=== PATIENT | male | born 1945 | race Caucasian/White ===

== ENCOUNTER 2017-12-18 21:26 | Emergency (ER) | payer MEDICARE ==
[~2017-12-18 21:26] MED LIST: ALBU6.7H IH; ALLO300T2 PO; ASPI-12 PO; BUME2TAB18 PO; LEVO175T9 PO; METO25TA6 PO; NITR0.4T50 SL; OLAN5TAB27 PO; POTA10TA PO; PRED10TA23 PO; TRAZ-187 PO
[2017-12-18 23:02] LABS: BASOPHILS % (AUTO) 0.7 % (0.0-5.0); EOSINOPHILS % (AUTO) 10.5 % (0.0-8.0); HEMATOCRIT 37.3 % (42-54); LYMPHOCYTES % (AUTO) 15.2 % (21.0-51.0); MEAN CORPUSCULAR HEMOGLOBIN 32.7 pg (27.0-33.0); MEAN CORPUSCULAR HGB CONC 35.9 g/dL (32.0-36.0); MEAN CORPUSCULAR VOLUME 91.3 fL (79-99); MONOCYTES % (AUTO) 9.6 % (3.0-13.0); PLATELET COUNT (AUTO) 209 K/uL (130-400); RED BLOOD CELL COUNT(AUTO) 4.08 MIL/uL (4.50-6.20); RED CELL DISTRIBUTION WIDTH 14.5 % (11.0-15.5); WHITE BLOOD COUNT (AUTO) 9.9 K/uL (4.8-10.8)
[2017-12-18 23:16] LABS: CREATININE 1.4 mg/dL (0.5-1.5); POTASSIUM 3.9 mmol/L (3.5-5.1)
== END 2017-12-19 01:36 | disposition home or self-care (01) ==
LOC: EDH 21:26
DX: M54.5 Low back pain (principal); R51 Headache; R42 Dizziness and giddiness; G89.29 Other chronic pain; I10 Essential (primary) hypertension; E11.9 Type 2 diabetes mellitus without complications; E07.9 Disorder of thyroid, unspecified; Z88.8 Allergy status to other drugs, medicaments and biological substances; W18.39XA Other fall on same level, initial encounter; Y93.89 Activity, other specified; Y92.89 Other specified places as the place of occurrence of the external cause; Y99.8 Other external cause status
CPT/HCPCS: 36415; 70450; 72100; 72125; 73522; 80048; 85025; 93005

== ENCOUNTER 2018-12-02 14:05 | Emergency (ER) | payer MEDICARE, OTHER ==
[~2018-12-02 14:05] MED LIST changes: +ACET325C5 PO; +AEC81 PO; -ALBU6.7H IH; +APIX2.5T PO; -ASPI-12 PO; +BISA5TAB12 PO; +LUBI24CA2 PO; +MEMA5TAB7 PO; +METF-444 PO; +METO25 PO; -METO25TA6 PO; -NITR0.4T50 SL; -OLAN5TAB27 PO; +PALI117D IM; -POTA10TA PO; -PRED10TA23 PO; -TRAZ-187 PO
[2018-12-02 15:53] LABS: BASOPHILS % (AUTO) 0.8 % (0.0-5.0); EOSINOPHILS % (AUTO) 5.2 % (0.0-8.0); HEMATOCRIT 37.4 % (42-54); LYMPHOCYTES % (AUTO) 12.5 % (21.0-51.0); MEAN CORPUSCULAR HGB CONC 34.1 g/dL (32.0-36.0); MEAN CORPUSCULAR VOLUME 90.8 fL (79-99); MONOCYTES % (AUTO) 7.5 % (3.0-13.0); NUCLEATED RED BLOOD CELLS 0.1 % (0.0-0.19); PLATELET COUNT (AUTO) 257 K/uL (130-400); RED BLOOD CELL COUNT(AUTO) 4.12 MIL/uL (4.50-6.20); RED CELL DISTRIBUTION WIDTH 15.9 % (11.0-15.5); WHITE BLOOD COUNT (AUTO) 8.6 K/uL (4.8-10.8)
[2018-12-02 16:13] LABS: CREATININE 1.2 mg/dL (0.5-1.5); POTASSIUM 4.5 mmol/L (3.5-5.1)
[2018-12-02 16:18] LABS: BILIRUBIN,TOTAL 0.7 mg/dL (0.2-1.0); TOTAL PROTEIN, SERUM 8.5 g/dL (6.0-8.3)
[2018-12-02] MEDS ORDERED: ACETAMINOPHEN 325 MG TAB ONE (17:46)
== END 2018-12-02 21:59 | disposition home or self-care (01) ==
LOC: EDH 14:05
DX: S09.90XA Unspecified injury of head, initial encounter (principal); F31.9 Bipolar disorder, unspecified; I11.0 Hypertensive heart disease with heart failure; I50.9 Heart failure, unspecified; E11.9 Type 2 diabetes mellitus without complications; E07.9 Disorder of thyroid, unspecified; Z90.49 Acquired absence of other specified parts of digestive tract; Z91.040 Latex allergy status; W18.39XA Other fall on same level, initial encounter; Y93.89 Activity, other specified; Y92.89 Other specified places as the place of occurrence of the external cause; Y99.8 Other external cause status
CPT/HCPCS: 36415; 70450; 80053; 84484; 85025; 93005

== ENCOUNTER 2019-01-01 20:31 | Emergency (ER) | payer MEDICARE ==
[2019-01-01 21:27] LABS: BASOPHILS % (AUTO) 0.6 % (0.0-5.0); EOSINOPHILS % (AUTO) 5.4 % (0.0-8.0); HEMATOCRIT 35.1 % (42-54); MEAN CORPUSCULAR HEMOGLOBIN 31.6 pg (27.0-33.0); MEAN CORPUSCULAR HGB CONC 34.6 g/dL (32.0-36.0); MEAN CORPUSCULAR VOLUME 91.4 fL (79-99); MONOCYTES % (AUTO) 13.6 % (3.0-13.0); NEUTROPHILS % (AUTO) 65.4 % (40.0-77.0); NUCLEATED RED BLOOD CELLS 0.1 % (0.0-0.19); PLATELET COUNT (AUTO) 195 K/uL (130-400); RED BLOOD CELL COUNT(AUTO) 3.84 MIL/uL (4.50-6.20); RED CELL DISTRIBUTION WIDTH 15.2 % (11.0-15.5); WHITE BLOOD COUNT (AUTO) 7.2 K/uL (4.8-10.8)
[2019-01-01 21:35] LABS: CREATININE 1.1 mg/dL (0.5-1.5); POTASSIUM 3.9 mmol/L (3.5-5.1)
[2019-01-01 21:36] LABS: PARTIAL THROMBOPLASTIN TIME 24.6 SEC (26.3-35.5); PROTHROMBIN TIME 10.5 SEC (9.6-11.6)
[2019-01-01 21:38] LABS: APPEARANCE,URINE Clear (CLEAR); BILIRUBIN,URINE Negative (NEGATIVE); COLOR,URINE Yellow (YELLOW); GLUCOSE, URINE (UA) Negative (NEGATIVE); KETONES,URINE Negative (NEGATIVE); LEUKOCYTE ESTERASE ,URINE Negative (NEGATIVE); NITRATE,URINE Negative (NEGATIVE); OCCULT BLOOD,URINE Negative (NEGATIVE); PROTEIN,URINE Negative (NEGATIVE)
[2019-01-01 21:39] LABS: ALBUMIN 3.3 g/dL (3.5-5.0); BILIRUBIN,TOTAL 0.6 mg/dL (0.2-1.0); TOTAL PROTEIN, SERUM 7.7 g/dL (6.0-8.3)
== END 2019-01-02 01:10 | disposition home or self-care (01) ==
LOC: EDH 20:31
DX: M25.552 Pain in left hip (principal); M54.2 Cervicalgia; R51 Headache; F02.80 Dementia in other diseases classified elsewhere, unspecified severity, without behavioral disturbance, psychotic disturbance, mood disturbance, and anxiety; F31.9 Bipolar disorder, unspecified; E11.9 Type 2 diabetes mellitus without complications; I10 Essential (primary) hypertension; E07.9 Disorder of thyroid, unspecified; Z90.49 Acquired absence of other specified parts of digestive tract; Z87.891 Personal history of nicotine dependence; W18.39XA Other fall on same level, initial encounter; Y93.01 Activity, walking, marching and hiking; Y92.89 Other specified places as the place of occurrence of the external cause; Y99.8 Other external cause status
CPT/HCPCS: 36415; 70450; 71045; 72125; 73502; 80053; 81003; 82550; 84484; 85025; 85610; 85730; 93005

== ENCOUNTER 2022-07-13 22:23 | Inpatient (IN) | payer OTHER, MEDICARE ==
[~2022-07-13] VITALS: Ht 182.9 cm; Wt 102.1 kg
[~2022-07-13 22:23] MED LIST changes: -ACET325C5 PO; +ACET325C6 PO; +BISA-151 PO; -BISA5TAB12 PO; -BUME2TAB18 PO; +BUME2TAB5 PO
[2022-07-13] MEDS ORDERED: ACETAMINOPHEN 325 MG SUPPOSITORY RC ONE (22:51)
[2022-07-13] MEDS ORDERED: ACETAMINOPHEN 650 MG SUPPOSITORY RC ONE (23:00)
[2022-07-13 23:01] LABS: BASOPHILS % (AUTO) 0.3 % (0.0-5.0); EOSINOPHILS % (AUTO) 0.5 % (0.0-8.0); HEMATOCRIT 41.1 % (42-54); LYMPHOCYTES % (AUTO) 2.5 % (21.0-51.0); MEAN CORPUSCULAR HEMOGLOBIN 30.2 pg (27.0-33.0); MEAN CORPUSCULAR HGB CONC 33.6 g/dL (32.0-36.0); MEAN CORPUSCULAR VOLUME 89.9 fL (79-99); MONOCYTES % (AUTO) 5.6 % (3.0-13.0); NEUTROPHILS % (AUTO) 90.6 % (40.0-77.0); PLATELET COUNT (AUTO) 217 K/uL (130-400); RED BLOOD CELL COUNT(AUTO) 4.57 MIL/uL (4.50-6.20); RED CELL DISTRIBUTION WIDTH 15.5 % (11.0-15.5); WHITE BLOOD COUNT (AUTO) 18.3 K/uL (4.8-10.8)
[2022-07-13 23:14] LABS: INR 1.08 (0.85-1.15); PROTHROMBIN TIME 11.7 SEC (9.6-11.6)
[2022-07-13 23:15] LABS: CREATININE 1.2 mg/dL (0.5-1.5); PARTIAL THROMBOPLASTIN TIME 21.4 SEC (26.3-35.5); POTASSIUM 4.2 mmol/L (3.5-5.1)
[2022-07-13 23:19] LABS: ABG BASE EXCESS -2.7 mmol/L (-2.0-3.0); ABG HCO3 20.3 mmol/L (21.0-28.0); ABG OXYGEN SATURATION 88.2 % (95.0-99.0); ABG PCO2 30 mmHg (35-48)
[2022-07-13 23:19] LABS: ALBUMIN 3.3 g/dL (3.5-5.0); MAGNESIUM 1.7 mg/dL (1.80-2.40); TOTAL PROTEIN, SERUM 9.6 g/dL (6.0-8.3)
[2022-07-13 23:26] LABS: APPEARANCE,URINE CLEAR (CLEAR); BILIRUBIN,URINE NEGATIVE (NEGATIVE); COLOR,URINE LIGHT-YELLOW (YELLOW); GLUCOSE, URINE (UA) NEGATIVE (NEGATIVE); KETONES,URINE NEGATIVE (NEGATIVE); LEUKOCYTE ESTERASE ,URINE NEGATIVE Leu/uL (NEGATIVE); NITRATE,URINE NEGATIVE (NEGATIVE); PROTEIN,URINE 10 mg/dL (NEGATIVE); UROBILINOGEN,URINE 0.2 mg/dL (0.2-1.0)
[2022-07-13 23:28] LABS: B-TYPE NATRIURETIC PEPTIDE 112 pg/mL (0-100)
[2022-07-13 23:48] LABS: MUCUS,URINE RARE LPF (None Seen); RBC,URINE 0-1 /HPF (0-1)
[2022-07-14] MEDS ORDERED: ZOSYN 3.375GM +NS 50ML IV ONE
[2022-07-14] MEDS ORDERED: 0.9%NACL 1000ML 2,000 ML IV ONE (00:48)
[2022-07-14] MEDS ORDERED: IPRATROPIUM/ALBUTEROL SULFATE 3 ML SOLUTION IH PRN (01:00)
[2022-07-14] MEDS: ZOSYN 3.375GM +NS 50ML IV SCH ×3 (01:00→17:30)
[2022-07-14] MEDS ORDERED: 0.9%NACL 1000ML 2,190 ML IV ONE (01:00)
[2022-07-14] MEDS: LEVOFLOXACIN 500 MG/D5W 100 ML 100 ML IV SCH (01:47)
[2022-07-14] MEDS: INSULIN HUMULIN R 100 UNIT/ML 3ML SQ SCH ×5 (07:30→20:35)
[2022-07-14 08:43] LABS: ALBUMIN 2.7 g/dL (3.5-5.0); CREATININE 1.2 mg/dL (0.5-1.5); MAGNESIUM 1.7 mg/dL (1.80-2.40); PHOSPHORUS 2.9 mg/dL (2.5-4.9); POTASSIUM 4.5 mmol/L (3.5-5.1); TOTAL PROTEIN, SERUM 7.9 g/dL (6.0-8.3)
[2022-07-14] MEDS ORDERED: POTASSIUM CHLORIDE 20MEQ/100ML 100 ML IV PRN ×2 (09:00)
[2022-07-14] MEDS ORDERED: ONDANSETRON 4MG INJ IVP PRN (09:00)
[2022-07-14] MEDS ORDERED: 0.9% NACL 250ML IV SCH (09:00)
[2022-07-14] MEDS ORDERED: VANCOMYCIN PROTOCOL PER PHARMACY IV SCH (09:00)
[2022-07-14] MEDS ORDERED: DEXTROSE 50%-WATER 50 ML DISP.SYRIN IV PRN (09:00)
[2022-07-14] MEDS ORDERED: GLUCAGON 1MG KIT 1 MG ML IM PRN (09:00)
[2022-07-14] MEDS ORDERED: VANCOMYCIN 1G VIAL IVPB SCH (09:00)
[2022-07-14] MEDS ORDERED: LIDOCAINE HCL-MPF 1% 2ML VIAL IV PRN ×2 (09:00)
[2022-07-14 09:03] LABS: BASOPHILS % (AUTO) 0.2 % (0.0-5.0); EOSINOPHILS % (AUTO) 0.3 % (0.0-8.0); HEMATOCRIT 33.6 % (42-54); MEAN CORPUSCULAR HEMOGLOBIN 30.2 pg (27.0-33.0); MEAN CORPUSCULAR HGB CONC 33.6 g/dL (32.0-36.0); MEAN CORPUSCULAR VOLUME 89.8 fL (79-99); MONOCYTES % (AUTO) 8.1 % (3.0-13.0); NEUTROPHILS % (AUTO) 86.8 % (40.0-77.0); PLATELET COUNT (AUTO) 147 K/uL (130-400); RED BLOOD CELL COUNT(AUTO) 3.74 MIL/uL (4.50-6.20); RED CELL DISTRIBUTION WIDTH 15.5 % (11.0-15.5); WHITE BLOOD COUNT (AUTO) 17.6 K/uL (4.8-10.8)
[2022-07-14] MEDS: ENOXAPARIN SODIUM 30 MG/0.3 ML SQ SCH (10:11)
[2022-07-14] MEDS ORDERED: COMPOUND IV REFRIGERATED 1 EACH IVSOLN MISC PRN (11:00)
[2022-07-14] MEDS: IPRATROPIUM/ALBUTEROL SULFATE 3 ML SOLUTION IH SCH ×3 (11:38→23:27)
[2022-07-14] MEDS: VANCOMYCIN 1.25 GM/250 ML BAG 250 ML IV SCH ×2 (11:57→21:41)
[2022-07-14] MEDS: MAGNESIUM 2GM PREMIX 50ML 50 ML IV PRN (14:15)
[2022-07-14 19:00] VITALS: BP 117/59
[2022-07-14] MEDS ORDERED: SODIUM CHLORIDE 3% FOR INHALATION 4 ML/AMP VIAL.NEB IH ONE (23:37)
[2022-07-15] VITALS (7 sets, daily range): BP systolic 114–132; BP diastolic 60–90
[2022-07-15] MEDS: LEVOFLOXACIN 500 MG/D5W 100 ML 100 ML IV SCH (00:07)
[2022-07-15] MEDS: ZOSYN 3.375GM +NS 50ML IV SCH ×3 (01:17→18:12)
[2022-07-15] MEDS ORDERED: GUAIFENESIN-DM 200/20 MG 10 ML PO PRN (01:30)
[2022-07-15 05:23] LABS: HEMATOCRIT 32.8 % (42-54); MEAN CORPUSCULAR HEMOGLOBIN 30.4 pg (27.0-33.0); MEAN CORPUSCULAR HGB CONC 34.1 g/dL (32.0-36.0); MEAN CORPUSCULAR VOLUME 88.9 fL (79-99); RED BLOOD CELL COUNT(AUTO) 3.69 MIL/uL (4.50-6.20); RED CELL DISTRIBUTION WIDTH 15.1 % (11.0-15.5); WHITE BLOOD COUNT (AUTO) 10.8 K/uL (4.8-10.8)
[2022-07-15] MEDS: INSULIN HUMULIN R 100 UNIT/ML 3ML SQ SCH ×7 (05:33→22:43)
[2022-07-15 05:38] LABS: POTASSIUM 3.8 mmol/L (3.5-5.1)
[2022-07-15 05:46] LABS: HEMOGLOBIN A1C 6.1 % (4.0-6.0)
[2022-07-15] MEDS ORDERED: IPRATROPIUM/ALBUTEROL SULFATE 3 ML SOLUTION IH SCH (06:00)
[2022-07-15] MEDS: IPRATROPIUM/ALBUTEROL SULFATE 3 ML SOLUTION IH SCH ×4 (07:00→23:12)
[2022-07-15] MEDS: ENOXAPARIN SODIUM 30 MG/0.3 ML SQ SCH (09:07)
[2022-07-15] MEDS: VANCOMYCIN 1.25 GM/250 ML BAG 250 ML IV SCH ×2 (09:59→22:32)
[2022-07-15] MEDS ORDERED: HUM100IN SQ (17:34)
[2022-07-15] MEDS ORDERED: METO25TA6 PO (17:34)
[2022-07-15] MEDS ORDERED: LACT10SO9 PO (17:34)
[2022-07-15] MEDS ORDERED: INSU200I SQ (17:34)
[2022-07-15] MEDS ORDERED: LEVO200C2 PO (17:34)
[2022-07-15] MEDS ORDERED: MEMA5TAB PO (17:34)
[2022-07-15] MEDS ORDERED: METF-444 PO (17:34)
[2022-07-15] MEDS ORDERED: ASPI-1005 PO (17:34)
[2022-07-15] MEDS ORDERED: ALLO300T2 PO (17:34)
[2022-07-15] MEDS ORDERED: SERT-438 PO (17:34)
[2022-07-15] MEDS ORDERED: BENZ0.5T43 PO (17:34)
[2022-07-15] MEDS ORDERED: DEXT1DRO OP (17:34)
[2022-07-15] MEDS ORDERED: ACET325T51 PO (17:34)
[2022-07-15] MEDS ORDERED: MULT15TA3 PO (17:34)
[2022-07-15] MEDS ORDERED: DOCU100C33 PO (17:34)
[2022-07-15] MEDS ORDERED: BUME2TAB5 PO (17:34)
[2022-07-15] MEDS ORDERED: LINA145C PO (17:34)
[2022-07-15] MEDS ORDERED: PALI39DI IM (17:34)
[2022-07-15] MEDS ORDERED: ACETAMINOPHEN 325 MG TAB PO PRN (18:00)
[2022-07-15] MEDS ORDERED: METOPROLOL TARTRATE 25 MG TAB ONE (18:22)
[2022-07-15] MEDS: METOPROLOL TARTRATE 25 MG TAB PO SCH ×2 (18:28→22:23)
[2022-07-15] MEDS ORDERED: [UNRECOGNIZED DRUG - OTHER] SQ SCH (21:00)
[2022-07-15] MEDS ORDERED: HUM INSULIN NPH SQ SCH (21:00)
[2022-07-15] MEDS ORDERED: INSULIN LISPRO 10 UNIT SQ SCH (21:00)
[2022-07-15] MEDS ORDERED: REG INSULIN SQ SCH (21:00)
[2022-07-15] MEDS: METFORMIN HCL 500 MG TABLET PO SCH (22:23)
[2022-07-15] MEDS: MEMANTINE HCL 5 MG TABLET PO SCH (22:23)
[2022-07-15] MEDS: DOCUSATE SODIUM 100 MG CAP PO SCH (22:24)
[2022-07-15] MEDS: ASPIRIN 81MG CHEW TAB PO SCH (22:24)
[2022-07-15] MEDS: LACTULOSE 20 GM/30 ML UDCUP PO SCH (22:24)
[2022-07-15] MEDS: BENZTROPINE 0.5MG TAB PO SCH (22:36)
[2022-07-15] MEDS: INSULIN LISPRO 100 UNIT/ML 3ML SQ SCH (22:40)
[2022-07-16] MEDS: ZOSYN 3.375GM +NS 50ML IV SCH ×3 (01:52→17:01)
[2022-07-16 04:00] VITALS: BP 110/56
[2022-07-16 05:34] LABS: BASOPHILS % (AUTO) 0.6 % (0.0-5.0); EOSINOPHILS % (AUTO) 5.6 % (0.0-8.0); HEMATOCRIT 32.4 % (42-54); LYMPHOCYTES % (AUTO) 8.7 % (21.0-51.0); MEAN CORPUSCULAR HEMOGLOBIN 29.9 pg (27.0-33.0); MEAN CORPUSCULAR HGB CONC 33.6 g/dL (32.0-36.0); MONOCYTES % (AUTO) 10.3 % (3.0-13.0); NEUTROPHILS % (AUTO) 73.8 % (40.0-77.0); PLATELET COUNT (AUTO) 188 K/uL (130-400); RED BLOOD CELL COUNT(AUTO) 3.64 MIL/uL (4.50-6.20); RED CELL DISTRIBUTION WIDTH 15.4 % (11.0-15.5); WHITE BLOOD COUNT (AUTO) 10.4 K/uL (4.8-10.8)
[2022-07-16 05:41] LABS: CREATININE 1.2 mg/dL (0.5-1.5)
[2022-07-16] MEDS: INSULIN HUMULIN R 100 UNIT/ML 3ML SQ SCH ×4 (06:01→21:00)
[2022-07-16] MEDS: LEVOTHYROXINE 100 MCG TABLET PO SCH (06:11)
[2022-07-16] MEDS: INSULIN HUMULIN 70/30 100 UNIT/ML 3ML SQ SCH ×2 (06:13→16:54)
[2022-07-16] MEDS: IPRATROPIUM/ALBUTEROL SULFATE 3 ML SOLUTION IH SCH ×3 (06:41→18:51)
[2022-07-16 07:49] VITALS: BP 112/50
[2022-07-16] MEDS: METFORMIN HCL 500 MG TABLET PO SCH ×2 (08:54→21:08)
[2022-07-16] MEDS: ALLOPURINOL 300 MG TABLET PO SCH (08:54)
[2022-07-16] MEDS: MEMANTINE HCL 5 MG TABLET PO SCH ×2 (08:55→21:10)
[2022-07-16] MEDS: LACTULOSE 20 GM/30 ML UDCUP PO SCH ×2 (08:56→21:10)
[2022-07-16] MEDS: BENZTROPINE 0.5MG TAB PO SCH ×2 (08:56→21:10)
[2022-07-16] MEDS: DOCUSATE SODIUM 100 MG CAP PO SCH ×2 (09:00→21:08)
[2022-07-16] MEDS ORDERED: NON-FORMULARY MEDICATION 1 EACH (Levothyroxine Sodium (Levothyroxine) 200 MCG) PO SCH (09:00)
[2022-07-16] MEDS ORDERED: BUMETANIDE 2 MG PO SCH (09:00)
[2022-07-16] MEDS: MULTIVITAMINS/MINERALS/IRO TAB PO SCH (09:00)
[2022-07-16] MEDS ORDERED: Linaclotide (Linzess) 145 MCG PO SCH (09:00)
[2022-07-16] MEDS: BUMETANIDE 1 MG TAB PO SCH (09:01)
[2022-07-16] MEDS: VANCOMYCIN 1.25 GM/250 ML BAG 250 ML IV SCH ×2 (09:12→18:38)
[2022-07-16] MEDS: ENOXAPARIN SODIUM 30 MG/0.3 ML SQ SCH (09:23)
[2022-07-16] MEDS: INSULIN LISPRO 100 UNIT/ML 3ML SQ SCH ×2 (10:04→21:20)
[2022-07-16 10:59] VITALS: BP 115/65
[2022-07-16 15:46] VITALS: BP 138/70
[2022-07-16] MEDS ORDERED: VANCOMYCIN PROTOCOL PER PHARMACY IV SCH (16:30)
[2022-07-16 20:32] VITALS: BP 123/58
[2022-07-16] MEDS: ASPIRIN 81MG CHEW TAB PO SCH (21:08)
[2022-07-17] VITALS (7 sets, daily range): BP systolic 109–132; BP diastolic 54–70
[2022-07-17] MEDS: ZOSYN 3.375GM +NS 50ML IV SCH ×3 (00:20→17:07)
[2022-07-17 05:23] LABS: BASOPHILS % (AUTO) 0.7 % (0.0-5.0); EOSINOPHILS % (AUTO) 7.9 % (0.0-8.0); HEMATOCRIT 31.7 % (42-54); LYMPHOCYTES % (AUTO) 11.3 % (21.0-51.0); MEAN CORPUSCULAR HEMOGLOBIN 30.4 pg (27.0-33.0); MEAN CORPUSCULAR HGB CONC 34.1 g/dL (32.0-36.0); MEAN CORPUSCULAR VOLUME 89.3 fL (79-99); NEUTROPHILS % (AUTO) 67.2 % (40.0-77.0); PLATELET COUNT (AUTO) 208 K/uL (130-400); RED BLOOD CELL COUNT(AUTO) 3.55 MIL/uL (4.50-6.20); RED CELL DISTRIBUTION WIDTH 15.3 % (11.0-15.5); WHITE BLOOD COUNT (AUTO) 9.6 K/uL (4.8-10.8)
[2022-07-17] MEDS: VANCOMYCIN 1.25 GM/250 ML BAG 250 ML IV SCH ×2 (05:33→18:00)
[2022-07-17] MEDS: INSULIN HUMULIN R 100 UNIT/ML 3ML SQ SCH ×4 (05:36→21:00)
[2022-07-17] MEDS: LEVOTHYROXINE 100 MCG TABLET PO SCH (05:36)
[2022-07-17] MEDS: INSULIN HUMULIN 70/30 100 UNIT/ML 3ML SQ SCH ×2 (05:36→17:08)
[2022-07-17 05:40] LABS: CREATININE 1.2 mg/dL (0.5-1.5); POTASSIUM 3.7 mmol/L (3.5-5.1)
[2022-07-17] MEDS: IPRATROPIUM/ALBUTEROL SULFATE 3 ML SOLUTION IH SCH ×3 (06:52→19:07)
[2022-07-17] MEDS: MULTIVITAMINS/MINERALS/IRO TAB PO SCH (09:00)
[2022-07-17] MEDS ORDERED: SERTRALINE HCL PO SCH (09:00)
[2022-07-17] MEDS: SERTRALINE 12.5 MG PO SCH (09:00)
[2022-07-17] MEDS: ALLOPURINOL 300 MG TABLET PO SCH (09:11)
[2022-07-17] MEDS: LACTULOSE 20 GM/30 ML UDCUP PO SCH ×2 (09:11→20:30)
[2022-07-17] MEDS: BENZTROPINE 0.5MG TAB PO SCH ×2 (09:11→20:31)
[2022-07-17] MEDS: METFORMIN HCL 500 MG TABLET PO SCH ×2 (09:11→20:31)
[2022-07-17] MEDS: BUMETANIDE 1 MG TAB PO SCH (09:11)
[2022-07-17] MEDS: MEMANTINE HCL 5 MG TABLET PO SCH ×2 (09:11→20:32)
[2022-07-17] MEDS: DOCUSATE SODIUM 100 MG CAP PO SCH ×2 (09:12→20:31)
[2022-07-17] MEDS: ENOXAPARIN SODIUM 30 MG/0.3 ML SQ SCH (09:14)
[2022-07-17] MEDS: INSULIN LISPRO 100 UNIT/ML 3ML SQ SCH ×2 (12:40→21:00)
[2022-07-17] MEDS: ASPIRIN 81MG CHEW TAB PO SCH (20:32)
[2022-07-17] MEDS: METOPROLOL TARTRATE 25 MG TAB PO SCH (20:32)
[2022-07-18] VITALS: BP 129/68
[2022-07-18] MEDS: ZOSYN 3.375GM +NS 50ML IV SCH ×3 (01:04→18:08)
[2022-07-18 04:00] VITALS: BP 100/66
[2022-07-18 05:30] LABS: BASOPHILS % (AUTO) 0.7 % (0.0-5.0); EOSINOPHILS % (AUTO) 7.9 % (0.0-8.0); HEMATOCRIT 33.1 % (42-54); LYMPHOCYTES % (AUTO) 10.1 % (21.0-51.0); MEAN CORPUSCULAR HEMOGLOBIN 30.3 pg (27.0-33.0); MEAN CORPUSCULAR HGB CONC 33.8 g/dL (32.0-36.0); MEAN CORPUSCULAR VOLUME 89.5 fL (79-99); MONOCYTES % (AUTO) 9.1 % (3.0-13.0); NEUTROPHILS % (AUTO) 71.1 % (40.0-77.0); PLATELET COUNT (AUTO) 214 K/uL (130-400); RED CELL DISTRIBUTION WIDTH 15.5 % (11.0-15.5); WHITE BLOOD COUNT (AUTO) 9.1 K/uL (4.8-10.8)
[2022-07-18 05:46] LABS: CREATININE 1.3 mg/dL (0.5-1.5); POTASSIUM 3.6 mmol/L (3.5-5.1)
[2022-07-18] MEDS: VANCOMYCIN 1.25 GM/250 ML BAG 250 ML IV SCH ×2 (06:11→18:10)
[2022-07-18] MEDS: INSULIN HUMULIN R 100 UNIT/ML 3ML SQ SCH ×4 (06:23→20:31)
[2022-07-18] MEDS: LEVOTHYROXINE 100 MCG TABLET PO SCH (06:36)
[2022-07-18] MEDS: IPRATROPIUM/ALBUTEROL SULFATE 3 ML SOLUTION IH SCH ×3 (06:42→23:22)
[2022-07-18 07:40] VITALS: BP 102/55
[2022-07-18] MEDS: MULTIVITAMINS/MINERALS/IRO TAB PO SCH (09:00)
[2022-07-18] MEDS: LACTULOSE 20 GM/30 ML UDCUP PO SCH ×2 (09:52→20:47)
[2022-07-18] MEDS: ENOXAPARIN SODIUM 30 MG/0.3 ML SQ SCH (09:53)
[2022-07-18] MEDS: INSULIN LISPRO 100 UNIT/ML 3ML SQ SCH ×2 (09:54→21:00)
[2022-07-18] MEDS: MEMANTINE HCL 5 MG TABLET PO SCH ×2 (10:03→20:47)
[2022-07-18] MEDS: DOCUSATE SODIUM 100 MG CAP PO SCH ×2 (10:03→20:47)
[2022-07-18] MEDS: ALLOPURINOL 300 MG TABLET PO SCH (10:03)
[2022-07-18] MEDS: BUMETANIDE 1 MG TAB PO SCH (10:03)
[2022-07-18] MEDS: BENZTROPINE 0.5MG TAB PO SCH ×2 (10:03→20:47)
[2022-07-18] MEDS: METFORMIN HCL 500 MG TABLET PO SCH ×2 (10:03→20:47)
[2022-07-18 11:48] VITALS: BP 115/68
[2022-07-18] MEDS: INSULIN HUMULIN 70/30 100 UNIT/ML 3ML SQ SCH (14:12)
[2022-07-18] MEDS: KCL 20 MEQ ERTAB PO PRN ×2 (14:32→18:17)
[2022-07-18 14:42] LABS: INR 1.05 (0.85-1.15); PROTHROMBIN TIME 11.4 SEC (9.6-11.6)
[2022-07-18 14:44] LABS: PARTIAL THROMBOPLASTIN TIME 22.6 SEC (26.3-35.5)
[2022-07-18 15:50] VITALS: BP 98/48
[2022-07-18 20:00] VITALS: BP 130/68
[2022-07-18] MEDS: ASPIRIN 81MG CHEW TAB PO SCH (20:47)
[2022-07-18] MEDS: METOPROLOL TARTRATE 25 MG TAB PO SCH (20:47)
[2022-07-19] VITALS: BP 121/58
[2022-07-19] MEDS: ZOSYN 3.375GM +NS 50ML IV SCH ×3 (00:23→16:43)
[2022-07-19 04:00] VITALS: BP 100/51
[2022-07-19] MEDS: VANCOMYCIN 1.25 GM/250 ML BAG 250 ML IV SCH (05:16)
[2022-07-19] MEDS: LEVOTHYROXINE 100 MCG TABLET PO SCH (05:38)
[2022-07-19] MEDS: INSULIN HUMULIN R 100 UNIT/ML 3ML SQ SCH ×4 (06:18→20:09)
[2022-07-19] MEDS: IPRATROPIUM/ALBUTEROL SULFATE 3 ML SOLUTION IH SCH ×4 (06:29→23:07)
[2022-07-19] MEDS: INSULIN HUMULIN 70/30 100 UNIT/ML 3ML SQ SCH ×2 (08:03→16:45)
[2022-07-19] MEDS: METFORMIN HCL 500 MG TABLET PO SCH ×2 (08:09→20:07)
[2022-07-19] MEDS: ENOXAPARIN SODIUM 30 MG/0.3 ML SQ SCH (08:09)
[2022-07-19] MEDS: BUMETANIDE 1 MG TAB PO SCH (08:09)
[2022-07-19] MEDS: DOCUSATE SODIUM 100 MG CAP PO SCH ×2 (08:10→20:06)
[2022-07-19] MEDS: MEMANTINE HCL 5 MG TABLET PO SCH ×2 (08:10→20:06)
[2022-07-19] MEDS: ALLOPURINOL 300 MG TABLET PO SCH (08:10)
[2022-07-19] MEDS: BENZTROPINE 0.5MG TAB PO SCH ×2 (08:10→20:07)
[2022-07-19] MEDS: LACTULOSE 20 GM/30 ML UDCUP PO SCH ×2 (08:10→20:05)
[2022-07-19] MEDS: MULTIVITAMINS/MINERALS/IRO TAB PO SCH (08:11)
[2022-07-19] MEDS: SERTRALINE 12.5 MG PO SCH (08:11)
[2022-07-19 08:45] VITALS: BP 107/58
[2022-07-19 11:06] VITALS: BP 111/58
[2022-07-19 16:07] VITALS: BP 129/77
[2022-07-19 19:00] VITALS: BP 112/62
[2022-07-19] MEDS ORDERED: METOPROLOL TARTRATE 1 MG/ML 5ML VIAL IV ONE (19:30)
[2022-07-19] MEDS: ASPIRIN 81MG CHEW TAB PO SCH (20:06)
[2022-07-19] MEDS: METOPROLOL TARTRATE 25 MG TAB PO SCH (20:08)
[2022-07-19 23:21] LABS: MAGNESIUM 1.6 mg/dL (1.80-2.40); POTASSIUM 3.2 mmol/L (3.5-5.1)
[2022-07-20] VITALS (7 sets, daily range): BP systolic 113–139; BP diastolic 44–74
[2022-07-20] MEDS: POTASSIUM CHLORIDE 10% ELIXIR 20 MEQ/15 ML UDCUP PO PRN ×3 (00:05→06:40)
[2022-07-20] MEDS: MAGNESIUM 2GM PREMIX 50ML 50 ML IV PRN (00:07)
[2022-07-20] MEDS: ZOSYN 3.375GM +NS 50ML IV SCH ×3 (01:58→17:11)
[2022-07-20] MEDS: VANCOMYCIN 1.25 GM/250 ML BAG 250 ML IV SCH (05:06)
[2022-07-20] MEDS: INSULIN HUMULIN R 100 UNIT/ML 3ML SQ SCH ×4 (06:17→21:00)
[2022-07-20] MEDS: LEVOTHYROXINE 100 MCG TABLET PO SCH (06:21)
[2022-07-20] MEDS: IPRATROPIUM/ALBUTEROL SULFATE 3 ML SOLUTION IH SCH ×4 (06:32→23:13)
[2022-07-20] MEDS: LACTULOSE 20 GM/30 ML UDCUP PO SCH ×2 (08:18→22:02)
[2022-07-20] MEDS: ALLOPURINOL 300 MG TABLET PO SCH (08:19)
[2022-07-20] MEDS: METFORMIN HCL 500 MG TABLET PO SCH ×2 (08:19→22:02)
[2022-07-20] MEDS: BUMETANIDE 1 MG TAB PO SCH (08:19)
[2022-07-20] MEDS: BENZTROPINE 0.5MG TAB PO SCH ×2 (08:19→22:04)
[2022-07-20] MEDS: DOCUSATE SODIUM 100 MG CAP PO SCH ×2 (08:19→22:03)
[2022-07-20] MEDS: MEMANTINE HCL 5 MG TABLET PO SCH ×2 (08:19→22:03)
[2022-07-20] MEDS: ENOXAPARIN SODIUM 30 MG/0.3 ML SQ SCH (08:20)
[2022-07-20] MEDS: INSULIN HUMULIN 70/30 100 UNIT/ML 3ML SQ SCH ×2 (08:27→16:30)
[2022-07-20] MEDS: MULTIVITAMINS/MINERALS/IRO TAB PO SCH (08:51)
[2022-07-20] MEDS: METOPROLOL TARTRATE 25 MG TAB PO SCH (22:02)
[2022-07-20] MEDS: ASPIRIN 81MG CHEW TAB PO SCH (22:02)
[2022-07-21] MEDS: ZOSYN 3.375GM +NS 50ML IV SCH ×3 (00:49→17:00)
[2022-07-21 04:20] VITALS: BP 127/74
[2022-07-21] MEDS: LEVOTHYROXINE 100 MCG TABLET PO SCH (06:03)
[2022-07-21] MEDS: VANCOMYCIN 1.25 GM/250 ML BAG 250 ML IV SCH (06:03)
[2022-07-21] MEDS: INSULIN HUMULIN R 100 UNIT/ML 3ML SQ SCH ×3 (06:36→16:30)
[2022-07-21] MEDS: IPRATROPIUM/ALBUTEROL SULFATE 3 ML SOLUTION IH SCH ×3 (07:24→18:44)
[2022-07-21] MEDS: INSULIN HUMULIN 70/30 100 UNIT/ML 3ML SQ SCH ×2 (07:35→16:30)
[2022-07-21 08:00] VITALS: BP 119/56
[2022-07-21] MEDS: BENZTROPINE 0.5MG TAB PO SCH (08:29)
[2022-07-21] MEDS: LACTULOSE 20 GM/30 ML UDCUP PO SCH (08:29)
[2022-07-21] MEDS: BUMETANIDE 1 MG TAB PO SCH (08:29)
[2022-07-21] MEDS: METFORMIN HCL 500 MG TABLET PO SCH (08:30)
[2022-07-21] MEDS: MEMANTINE HCL 5 MG TABLET PO SCH (08:30)
[2022-07-21] MEDS: SERTRALINE 12.5 MG PO SCH (08:30)
[2022-07-21] MEDS: ENOXAPARIN SODIUM 30 MG/0.3 ML SQ SCH (08:31)
[2022-07-21] MEDS: ALLOPURINOL 300 MG TABLET PO SCH (08:31)
[2022-07-21] MEDS: MULTIVITAMINS/MINERALS/IRO TAB PO SCH (09:00)
[2022-07-21] MEDS: DOCUSATE SODIUM 100 MG CAP PO SCH (09:04)
[2022-07-21 09:37] LABS: HEMATOCRIT 33.6 % (42-54); MEAN CORPUSCULAR HGB CONC 33.6 g/dL (32.0-36.0); MEAN CORPUSCULAR VOLUME 89.1 fL (79-99); RED BLOOD CELL COUNT(AUTO) 3.77 MIL/uL (4.50-6.20); RED CELL DISTRIBUTION WIDTH 15.3 % (11.0-15.5)
[2022-07-21 09:40] LABS: CREATININE 1.3 mg/dL (0.5-1.5); POTASSIUM 3.8 mmol/L (3.5-5.1)
[2022-07-21 12:00] VITALS: BP 110/53
[2022-07-21 16:00] VITALS: BP 128/67
== END 2022-07-21 20:07 | DRG 871 ==
LOC: EDH 22:23 → EDHIP 07-14 00:19 → 3BH 07-14 19:04
PROVIDERS: ADMIT Internal Medicine Infectious Disease; ATTEND Internal Medicine Infectious Disease
PROC: 5A09357 Assistance with Respiratory Ventilation, Less than 24 Consecutive Hours, Continuous Positive Airway Pressure (ICD-10-PCS; principal; 2022-07-13)
PROC: 5A09357 Assistance with Respiratory Ventilation, Less than 24 Consecutive Hours, Continuous Positive Airway Pressure (ICD-10-PCS; 2022-07-14)
PROC: 5A09357 Assistance with Respiratory Ventilation, Less than 24 Consecutive Hours, Continuous Positive Airway Pressure (ICD-10-PCS; 2022-07-15)
PROC: 5A09357 Assistance with Respiratory Ventilation, Less than 24 Consecutive Hours, Continuous Positive Airway Pressure (ICD-10-PCS; 2022-07-17)
PROC: 5A09357 Assistance with Respiratory Ventilation, Less than 24 Consecutive Hours, Continuous Positive Airway Pressure (ICD-10-PCS; 2022-07-18)
PROC: 5A09357 Assistance with Respiratory Ventilation, Less than 24 Consecutive Hours, Continuous Positive Airway Pressure (ICD-10-PCS; 2022-07-20)
DX: A41.9 Sepsis, unspecified organism (principal); G93.41 Metabolic encephalopathy; J18.9 Pneumonia, unspecified organism; J96.01 Acute respiratory failure with hypoxia; F03.93 Unspecified dementia, unspecified severity, with mood disturbance; E87.20 Acidosis, unspecified; Z20.822 Contact with and (suspected) exposure to COVID-19; E11.9 Type 2 diabetes mellitus without complications; I10 Essential (primary) hypertension; E66.9 Obesity, unspecified; I48.91 Unspecified atrial fibrillation; F31.9 Bipolar disorder, unspecified; I25.10 Atherosclerotic heart disease of native coronary artery without angina pectoris; E03.9 Hypothyroidism, unspecified; E83.42 Hypomagnesemia; F20.9 Schizophrenia, unspecified; Z74.01 Bed confinement status; Z79.01 Long term (current) use of anticoagulants; Z83.3 Family history of diabetes mellitus; Z95.2 Presence of prosthetic heart valve; Z68.30 Body mass index [BMI] 30.0-30.9, adult
CPT/HCPCS: 36415; 36600; 71045; 71250; 80048; 80053; 80202; 81001; 82435; 82550; 82803; 82947; 82948; 83036; 83605; 83735; 83874; 83880; 84100; 84132; 84145; 84295; 84484; 85018; 85025; 85027; 85610; 85730; 87040; 87071; 87077; 87186; 87205; 87635; 87804; 87807; 92610; 93005; 93971; 94640; 94660; 94664; 97039; 99291; C1894; C9803; G0378; J1650; J1815; J1956; J2543; J3475; J3490; J7030

== ENCOUNTER → 2023-03-30 | Outpatient (CLI) | payer OTHER, MEDICARE ==
[~2023-03-30] MED LIST changes: -ACET325C6 PO; +ACET325T51 PO; -AEC81 PO; -APIX2.5T PO; +ASPI-1005 PO; +BENZ0.5T6 PO; -BISA-151 PO; +DEXT1DRO OP; +DOCU100C33 PO; +HUM100IN SQ; +INSU200I SQ; +LACT10SO9 PO; -LEVO175T9 PO; +LEVO200C2 PO; +LINA145C PO; -LUBI24CA2 PO; +MEMA5TAB PO; -MEMA5TAB7 PO; -METO25 PO; +METO25TA6 PO; +MULT15TA3 PO; -PALI117D IM; +PALI39DI IM; +SERT-438 PO
== END | disposition home or self-care (01) ==
LOC: SHCH 14:29
PROVIDERS: ATTEND Internal Medicine
DX: I08.3 Combined rheumatic disorders of mitral, aortic and tricuspid valves (principal); I11.9 Hypertensive heart disease without heart failure; I87.2 Venous insufficiency (chronic) (peripheral); E11.9 Type 2 diabetes mellitus without complications
CPT/HCPCS: 93306

== ENCOUNTER → 2023-04-27 | Outpatient (CLI) | payer OTHER, MEDICARE | END | disposition home or self-care (01) | LOC: SHCH 13:47 | PROVIDERS: ATTEND Internal Medicine | DX: I87.2 Venous insufficiency (chronic) (peripheral) (principal) | CPT/HCPCS: 93970 ==

== ENCOUNTER → 2023-09-16 | Outpatient (CLI) | payer OTHER, MEDICARE ==
[~2023-09-16] MED LIST changes: +CYAN100099 PO; +DIPH25TA51 PO; +DIVA250T45 PO; +FOLIC ACID PO; +FURO40TA7 PO; +GLUC1VIA14 IJ; +IOHEXOL 350 MG/ML 100ML INFUS..BTL IV ONE; +IOHEXOL-350 50ML VIAL IV ONE; +METO-408 PO; +ONDA-104 PO; +PALI117D IM; +PETR113O TP; +POTA-202 PO; +ROSU10TA28 PO; +SULF1TAB42 PO; +WARF3TAB59 PO
== END | disposition home or self-care (01) ==
LOC: RAH 08:50
PROVIDERS: ATTEND Internal Medicine
DX: R16.0 Hepatomegaly, not elsewhere classified (principal); I71.40 Abdominal aortic aneurysm, without rupture, unspecified; J90 Pleural effusion, not elsewhere classified; R18.8 Other ascites; M47.815 Spondylosis without myelopathy or radiculopathy, thoracolumbar region; I25.10 Atherosclerotic heart disease of native coronary artery without angina pectoris; R16.1 Splenomegaly, not elsewhere classified; I70.90 Unspecified atherosclerosis
CPT/HCPCS: 75635; Q9967 ×2